=== PATIENT | female | born 1980 | race Caucasian/White ===

== ENCOUNTER 2016-11-11 18:02 | Emergency (ER) | payer OTHER ==
[2016-11-11] MEDS ORDERED: NS 1,000 ML IV ONE (18:40)
[2016-11-11 19:07] LABS: % IMMATURE GRANULYOCYTES 0.2 % (0.0-1.1); ABSOLUTE IMMATURE GRANULOCYTES 0.02 10^3/uL (0.00-0.10); ADD DIFF? NO; ADD MORPH? NO; ADD SCAN? NO; ATYPICAL LYMPHOCYTE FLAG 0 (0-99); FRAGMENT RBC FLAG 0 (0-99); HEMATOCRIT 43.5 % (38.0-47.0); HEMOGLOBIN 14.9 g/dL (12.6-16.3); LEFT SHIFT FLG 0 (0-99); LIPEMIA HEMOLYSIS FLAG 90 (0-99); MEAN CELL HEMOGLOBIN 30.8 pg (27.9-34.1); MEAN CELL HEMOGLOBIN CONCENTR. 34.3 g/dL (32.4-36.7); MEAN CELL VOLUME 90.1 fL (81.5-99.8); MEAN PLATELET VOLUME 9.5 fL (8.7-11.7); PLATELET CLUMPS FLAG 0 (0-99); PLATELET COUNT 369 10^3/uL (150-400); RED BLOOD CELL COUNT 4.83 10^6/uL (4.18-5.33); RED CELL DISTRIBUTION WIDTH 12.9 % (11.5-15.2)
[2016-11-11 19:19] LABS: ANION GAP 11 mEq/L (8-16); CALCIUM 10.3 mg/dL (8.5-10.4); CARBON DIOXIDE 26 mEq/l (22-31); CHLORIDE 102 mEq/L (97-110); CREATININE 0.9 mg/dL (0.6-1.0); GLOMERULAR FILTRATION RATE > 60; GLUCOSE 100 mg/dL (70-100); SODIUM 139 mEq/L (134-144)
--- NOTE | 2016-11-11 19:19 | EDPHY ---
H & P Time Seen by Provider: 11/11/16 18:30 HPI/ROS: CHIEF COMPLAINT: Vaginal bleeding HISTORY OF PRESENT ILLNESS: 36-year-old female presents to the emergency department by private vehicle complaining of lower abdominal pain and abnormal vaginal bleeding. Her last menstrual period was 2 weeks ago which was normal in onset. She states today she developed some lower abdominal cramping while working and then developed heavy vaginal bleeding including passing large clots at work around 2:00 p.m. today. She states that the bleeding has continued although significantly improved. She has some lower back discomfort as well. She had an outpatient ultrasound done 4 or 5 months ago and she does not recall the results. 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 She has had 1 episode of intermittent vaginal bleeding over last few months. She states it has never been this bad. She denies feeling lightheaded. She has no syncopal episode. No fevers or chills. No chest pain or difficulty breathing. No urinary symptoms. She denies and states that her had a vasectomy number of years ago. REVIEW OF SYSTEMS: Constitutional: No fever, no chills. Eyes: No double or blurry vision. ENT: No sore throat. Respiratory: No cough, no shortness of breath. Cardiac: No chest pain. Gastrointestinal: Abdominal pain as above. No vomiting or diarrhea Genitourinary: Vaginal bleeding as above. No dysuria. Musculoskeletal: No neck or back pain. Skin: No rashes. Neurological: No headache. Past Medical/Surgical History: Negative Social History: Smoking Status: Never smoked Physical Exam: General Appearance: Alert, no distress. Vital signs are stable. Patient appears in no apparent distress. Eyes: Pupils equal and round. Extraocular motions are all intact. ENT: Mouth: Mucous membranes moist. Respiratory: No wheezing, rhonchi, or rales, lungs are clear to auscultation. Cardiovascular: Regular rate and rhythm. Gastrointestinal: Abdomen is soft and nontender, no masses, no rebound or guarding, bowel sounds normal. No CVA tenderness bilaterally. Genitourinary: Deferred Neurological: Alert and oriented x 3, cranial nerves II through XII grossly intact Skin: Warm and dry, no rashes. Musculoskeletal: Nontender to palpate along the cervical, thoracic or lumbar spine. Neck is supple. Extremities: Full range of motion and no peripheral edema. Psychiatric: Patient is oriented X 3, there is no agitation. Constitutional: Initial Vital Signs Temperature (C) 37 C 11/11/16 18:11 Heart Rate 108 H 11/11/16 18:11 Respiratory Rate 16 11/11/16 18:11 Blood Pressure 117/83 H 11/11/16 18:11 O2 Sat (%) 98 11/11/16 18:11 O2 Delivery Mode Room Air Allergies/Adverse Reactions: No Known Allergies Allergy (Verified 11/11/16 18:15) Home Medications: Medication Instructions Recorded Citalopram 11/11/16 Medical Decision Making - Diagnostics Imaging: Pelvic ultrasound reveals thickened endometrial lining at 16 mm. Uterus appears normal. Ovaries are normal. This is reported to me by Dr. Cho. ED Course/Re-evaluation: 36-year-old female presents with vaginal bleeding and lower abdominal pain. Pelvic ultrasound reveals 16 mm thickened endometrial lining. Her laboratory studies were within normal limits. HCG was negative. She was O positive. Patient was unable to provide a urine specimen. Patient was given 30 mg of IV Toradol and was feeling better. I spoke with Dr. Brenda Tompkins who was on-call for OBGYN. She agreed with discharging the patient and she would see her in follow-up. The patient was comfortable with this plan. She was comfortable being discharged home. Differential Diagnosis: Including but not limited to dysfunctional uterine bleeding, uterine fibroid, ovarian cyst, ovarian torsion, ectopic , intrauterine - Data Points Laboratory Results: Laboratory Results 11/11/16 18:30 11/11/16 18:30 11/11/16 11/11/16 11/11/16 18:30 18:30 18:30 WBC 10.15 10^3/uL H 10^3/uL (3.80-9.50) RBC 4.83 10^6/uL 10^6/uL (4.18-5.33) Hgb 14.9 g/dL g/dL (12.6-16.3) Hct 43.5 % % (38.0-47.0) MCV 90.1 fL fL (81.5-99.8) MCH 30.8 pg pg (27.9-34.1) MCHC 34.3 g/dL g/dL (32.4-36.7) RDW 12.9 % % (11.5-15.2) Plt Count 369 10^3/uL 10^3/uL (150-400) MPV 9.5 fL fL (8.7-11.7) Neut % (Auto) 71.2 % % (39.3-74.2) Lymph % (Auto) 22.0 % % (15.0-45.0) [place] % (Auto) 5.0 % % (4.5-13.0) Eos % (Auto) 1.0 % % (0.6-7.6) Baso % (Auto) 0.6 % % (0.3-1.7) Nucleat RBC Rel Count 0.0 % % (0.0-0.2) Absolute Neuts (auto) 7.23 10^3/uL H 10^3/uL (1.70-6.50) Absolute Lymphs (auto) 2.23 10^3/uL 10^3/uL (1.00-3.00) Absolute Monos (auto) 0.51 10^3/uL 10^3/uL (0.30-0.80) Absolute Eos (auto) 0.10 10^3/uL 10^3/uL (0.03-0.40) Absolute Basos (auto) 0.06 10^3/uL 10^3/uL (0.02-0.10) Absolute Nucleated RBC 0.00 10^3/uL 10^3/uL (0-0.01) Immature Gran % 0.2 % % (0.0-1.1) Immature Gran # 0.02 10^3/uL 10^3/uL (0.00-0.10) Sodium 139 mEq/L mEq/L (134-144) Potassium 4.0 mEq/L mEq/L (3.5-5.2) Chloride 102 mEq/L mEq/L (97-110) Carbon Dioxide 26 mEq/l mEq/l (22-31) Anion Gap 11 mEq/L mEq/L (8-16) BUN 9 mg/dL mg/dL (7-23) Creatinine 0.9 mg/dL mg/dL (0.6-1.0) Estimated GFR > 60 Glucose 100 mg/dL mg/dL (70-100) Calcium 10.3 mg/dL mg/dL (8.5-10.4) Beta HCG, Qual NEGATIVE Patient ABO/Rh 11/11/16 18:20 WBC RBC Hgb Hct MCV MCH MCHC RDW Plt Count MPV Neut % (Auto) Lymph % (Auto) [place] % (Auto) Eos % (Auto) Baso % (Auto) Nucleat RBC Rel Count Absolute Neuts (auto) Absolute Lymphs (auto) Absolute Monos (auto) Absolute Eos (auto) Absolute Basos (auto) Absolute Nucleated RBC Immature Gran % Immature Gran # Sodium Potassium Chloride Carbon Dioxide Anion Gap BUN Creatinine Estimated GFR Glucose Calcium Beta HCG, Qual Patient ABO/Rh O POSITIVE Medications Given: Discontinued Medications Sodium Chloride (Ns) 1,000 mls @ 0 mls/hr IV ONCE ONE PRN Reason: Wide Open Stop: 11/11/16 18:41 Last Admin: 11/11/16 18:40 Dose: 1,000 mls Ketorolac Tromethamine (Toradol) 30 mg IVP EDNOW ONE Stop: 11/11/16 20:16 Last Admin: 11/11/16 20:23 Dose: 30 mg Departure - Departure Disposition: Home, Routine, Self-Care Clinical Impression: Dysfunctional uterine bleeding Condition: Good Instructions: Dysfunctional Uterine Bleeding (ED) Additional Instructions: Call to arrange follow-up appointment with OBGYN. Return if he developed recurring abnormal bleeding, if you saturate a pad within 1 hour, or if you feel worse in any way. Referrals: Brenda Tompkins DO [Doctor of Osteopathy] - 5-7 days, call for appt. (OBGYN on- call)
[2016-11-11 20:06] VITALS: RESP 15
[2016-11-11] MEDS ORDERED: KETOROLAC 30 MG/1 ML SDV IVP ONE (20:15)
[2016-11-11 20:57] VITALS: BP 108/76; PULSE 84; TEMP 98.8; O2SAT 97
== END 2016-11-11 20:56 | disposition home or self-care (01) ==
DX: N93.8 Other specified abnormal uterine and vaginal bleeding (principal)
CPT/HCPCS: 96374; J1885

== ENCOUNTER → 2017-04-13 | Outpatient (CLI) | payer OTHER | LOC: FIMAGING 08:46 | PROVIDERS: ATTEND Internal Medicine Endocrinology, Diabetes & Metabolism | DX: E04.1 Nontoxic single thyroid nodule (principal) ==

== ENCOUNTER 2017-07-13 05:05 | Observation (INO) | payer OTHER ==
--- NOTE | 2017-07-01 19:34 | GHP ---
[f rep st] HISTORY AND PHYSICAL DATE OF ADMISSION: 07/13/2017 ADMITTING DIAGNOSIS: Dysfunctional uterine bleeding. HISTORY OF PRESENT ILLNESS: Patient is a 36-year-old 4, para 3-0-1-3 with last menstrual period 06/18/2017, who presents to my office for a surgical consult secondary to abnormal uterine bleeding for the past year. Patient states cycles are every 28 days for 6 or 7 days. Usually the first 4 days are heavy with medium, large clots noted and painful cramps. She does get relief with Midol and Motrin. She then will have abnormal heavy bleeding for another 3 -5 days. Changes her pad and tampon every hour or so. May 07 was her last episode of bleeding. She soaked through her clothes. Then she had a normal cycle May 22, then the she had pelvic pain and spotting, mucus with small clots noted. Patient has had a complete workup with PCP. No anemia or thyroid dysfunction noted. She did have an ultrasound November 2016, showing retroverted, retroflexed uterus measuring 9 x 3 x 5 cm with no masses, no definitive fibroids, diffuse heterogeneous endometrium measuring 16 mm, questionable complex fluid and/or clot within the endocervical canal, and no adnexal masses seen. Mild prominent adnexal veins were noted. Patient was on OCPs in the past. Did not tolerate secondary to mood swings. She is not interested in ablation, and having recurrence of bleeding 3-5 years later. Patient desires definitive treatment at this time secondary to her irregular, heavy bleeding, which is starting to interfere with her activities of daily living. We discussed proceeding to the OR for a laparoscopic hysterectomy, and patient agrees with this plan. We discussed removing fallopian tubes without removal of ovaries. PAST OBSTETRICAL HISTORY: In 1999, she had a missed . In 2001, she had an uncomplicated vaginal delivery. In 2002, she had an uncomplicated vaginal delivery and in 2005, she had an uncomplicated vaginal delivery. GYNECOLOGIC HISTORY: Age of menarche was 13. Cycles every 28 days. Usually bleeds for 7 days. They are heavy with painful cramps. Patient denies a history of abnormal Pap smears and denies any exposure to sexually transmitted diseases. PAST MEDICAL HISTORY: Remarkable for depression, anxiety, questionable thyroid disease. PAST SURGICAL HISTORY: Unremarkable. CURRENT MEDICATIONS: None. ALLERGIES: No known drug allergies. SOCIAL HISTORY: Patient is . She lives with her and their 3 children. 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 Denies any tobacco use. Alcohol: She drinks socially 1-2 times a week, and denies any illicit drug use. FAMILY HISTORY: Dad and maternal grandfather with heart disease, and mental illness on both maternal and paternal sides. Mother and father are both living. LABORATORY DATA: Pending. STUDIES: On recent ultrasound: The uterus is noted to be retroverted, measuring 8 x 4 x 5 cm. Uterus slightly heterogeneous, bulbous appearance. No distinct fibroids visualized. Endo-canal appears hypervascular, slightly more echogenic area, probable vascular stalk, questionable polyp measuring 7 x 3 x 7 mm. Ovaries normal appearing. No free fluid noted. EXAMINATION: GENERAL: Patient well-nourished, well-developed female, alert and oriented x3, no apparent distress. CARDIOVASCULAR: Regular rate, rhythm: PULM: Lungs clear to auscultation bilaterally. ABDOMEN: Soft, nondistended, nontender. PELVIC: Bimanual exam: A retroverted uterus, nontender, mobile. No adnexal masses noted. EXTREMITIES: Normal to inspection without calf tenderness or edema. ASSESSMENT: Patient is a 36-year-old 4, para 3-0-1-3, who presents with dysfunctional uterine bleeding, desiring definitive treatment. 1. Discussed surgery, laparoscopic hysterectomy with bilateral salpingectomy, its limitations, nothing by mouth status, and postoperative recovery. 2. Surgical consents were obtained. We discussed risks, benefits, alternatives of procedure, including, but not limited to bleeding, infection, damage to surrounding organs. 3. Patient understands all risks, and wants to proceed with surgery at this time. 4. Antibiotics rehabilitation services coordinator to operating room. 5. Sequential compression devices for deep vein thrombosis prophylaxis. 6. Lab slip given. We will check CBC, TSH, an ionized calcium per primary care physician and preoperative testing. 7. With family history of cardiac disease and patient's history of questionable palpitations, we will obtain an electrocardiogram. /[id number]/MODL MTDD
[2017-07-13] MEDS ORDERED: ceFAZolin 2 GM/SWFI 2 GM/20 ML SYR IVP ONE (05:48)
[2017-07-13] MEDS ORDERED: LR 1,000 ML IV ONE (05:50)
[2017-07-13] MEDS ORDERED: LIDOCAINE 1% 2 ML INJ ID PRN (05:50)
--- NOTE | 2017-07-13 07:05 | PDHPUP ---
History & Physical Update H&P update statement: This history and physical update is based on an assessment of the patient which was completed after admission or registration (within 24 hours), but prior to the surgery/procedure. H&P update: H&P reviewed & patient examined, no change in patient's condition since H&P completed
--- NOTE | 2017-07-13 07:08 | PDANEPAE ---
ANE Past Medical History - Cardiovascular History Hx Hypertension: No Hx Arrhythmias: No Hx Chest Pain: No Hx Coronary Artery / Peripheral Vascular Disease: No Hx CHF / Valvular Disease: No Hx Palpitations: Yes Cardiovascular History Comment: long time hx of irregular heart beat/ palpitations "since childhood". 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 06/22 normal Ca+. - Renal History Hx Renal Disorders: No - Liver History Hx Hepatic Disorders: No - Neurological & Psychiatric Hx Hx Neurological and Psychiatric Disorders: Yes Neurological / Psychiatric History Comment: hx of anxiety-NO ciitalopram use past 6 mos. - Cancer History Hx Cancer: No - Congenital Disorder History Hx Congenital Disorders: No - GI History Hx Gastrointestinal Disorders: No - Other Health History Other Health History: heavy uterine bleeding between Menses. - Chronic Pain History Chronic Pain: No - Surgical History Prior Surgeries: none ANE Review of Systems Review of Systems: - Exercise capacity METS (RN): 4 METS ANE Patient History - Allergies Allergies/Adverse Reactions: No Known Allergies Allergy (Verified 06/28/17 11:01) - Home Medications Home Medications: NK [No Known Home Meds] 06/28/17 [Last Taken Unknown] - Smoking Hx Smoking Status: Never smoked - Alcohol Use Alcohol Use: None - Family Anes Hx Family Anes Hx: neg - N/A Family Hx Anesthesia Complications: none known ANE Labs/Vital Signs - Vital Signs Blood Pressure: 111/80 Heart Rate: 88 Respiratory Rate: 16 O2 Sat (%): 98 Height: 167.64 cm Weight: 65.317 kg ANE Physical Exam - Airway Neck exam: FROM Mallampati Score: Class 2 - Pulmonary Pulmonary: no respiratory distress, no rales or rhonchi, clear to auscultation - Cardiovascular Cardiovascular: regular rate and rhythym, no murmur, rub, or gallop - ASA Status ASA Status: I (healthy female with dysfunctional bleeding)
[2017-07-13] MEDS ORDERED: MIDAZOLAM 2 MG/2 ML VIAL IVP ONE (07:09)
[2017-07-13] MEDS ORDERED: PROPOFOL/EMULSION 500 MG/50 ML BOTTLE IV ONE ×2 (07:13→08:54)
[2017-07-13] MEDS ORDERED: fentaNYL 100 MCG/2 ML INJ ONE ×2 (07:13→08:52)
[2017-07-13] MEDS ORDERED: MIDAZOLAM 2 MG/2 ML VIAL ONE (07:13)
[2017-07-13] MEDS ORDERED: BUPIVACAINE 0.5% 30 ML SDV ONE (07:21)
[2017-07-13] MEDS ORDERED: LIDOCAINE 2% 5 ML SDV ONE (08:51)
[2017-07-13] MEDS ORDERED: ONDANSETRON 4 MG/2 ML VIAL IVP PRN ×2 (09:01→12:45)
[2017-07-13] MEDS ORDERED: NALOXONE HCL 0.4 MG/ML INJ IVP PRN (09:01)
[2017-07-13] MEDS ORDERED: SUGAMMADEX SODIUM 200 MG/2 ML VIAL IVP ONE (09:29)
[2017-07-13] MEDS ORDERED: ONDANSETRON 4 MG/2 ML VIAL ONE (09:29)
[2017-07-13] MEDS ORDERED: ROCURONIUM 50 MG/5 ML VIAL ONE (09:29)
[2017-07-13] MEDS ORDERED: RANITIDINE 50 MG/2 ML VIAL ONE (09:29)
[2017-07-13] MEDS ORDERED: LABETALOL HCL 5 MG/ML 20 ML MDV ONE (09:29)
[2017-07-13] MEDS ORDERED: DEXAMETHASONE 4 MG/ML VIAL ONE (09:29)
--- NOTE | 2017-07-13 09:47 | POSTOPPROG ---
Post Op Note Date of Operation: 07/13/17 Surgeon: Chasidy Samson Instructor [employer]: Brenda Tompkins Anesthesia: GET(General Endotracheal) Pre-op Diagnosis: DUB Post-op Diagnosis: DUB, LLQ adhesions Indication: 37 y/o with DUB x 1 year duration Procedure: TLH with BS; ARYA Findings: Enlarged, boggy uterus w/ no def fibroids; tubes and ovaries normal Inf/Abcess present in the surg proc area at time of surgery?: No EBL: 50-100 (50 cc) Total fluids administered: 2400 cc LR UO: 300 cc clear urine at the end Complications: None Specimen(s): Uterus and b/l tubes
[2017-07-13] MEDS ORDERED: MAGNESIUM HYDROXIDE 30 ML UDCUP PO PRN (09:50)
[2017-07-13] MEDS ORDERED: BISACODYL 10 MG SUPP PR PRN (09:50)
[2017-07-13] MEDS ORDERED: KETOROLAC 30 MG/1 ML SDV IVP ONE (09:50)
[2017-07-13] MEDS ORDERED: POLYETHYLENE GLYCOL 3350 17 GM PKT PO PRN (09:50)
[2017-07-13] MEDS ORDERED: LACTULOSE 20 GM/30 ML UDCUP PO PRN (09:50)
[2017-07-13] MEDS ORDERED: HYDROmorphONE/DILAUDID 1 MG/ML INJ ONE (09:52)
--- NOTE | 2017-07-13 09:52 | POSTANESTH ---
Post Anesthetic Evaluation Respiratory Status: Normal, Stable Level of Consciousness/Mental Status: Can Participate in Eval Pain Control: Adequate, Prn Tx Ordered Nausea/Vomiting Control: Adequate, Prn Tx Ordered Complications Possibly Related to Anesthesia: None Noted (no complications)
[2017-07-13] MEDS: HYDROmorphONE/DILAUDID 1 MG/ML INJ IVP PRN ×2 (09:53→10:46)
[2017-07-13] MEDS ORDERED: KETOROLAC 15 MG/1 ML SDV ONE ×2 (09:59→10:13)
[2017-07-13] MEDS ORDERED: LR 1,000 ML IV SCH (10:00)
[2017-07-13] MEDS ORDERED: KETOROLAC 30 MG/1 ML SDV ONE (10:13)
[2017-07-13] MEDS ORDERED: PROMETHAZINE HCL 25 MG/ML INJ ONE (10:38)
--- NOTE | 2017-07-13 11:08 | GOP ---
[f rep st] OPERATIVE REPORT DATE OF OPERATION: 07/13/2017 SURGEON: Chasidy Samson DO REEL FILM INSPECTOR: Brenda Tompkins DO ANESTHESIA: General endotracheal. ANESTHESIOLOGIST: Ilya Mock MD PREOPERATIVE DIAGNOSIS: Dysfunctional uterine bleeding. POSTOPERATIVE DIAGNOSIS: 1. Dysfunctional uterine bleeding. 2. Left lower quadrant adhesions. PROCEDURE PERFORMED: Total laparoscopic hysterectomy, bilateral salpingectomy and lysis of adhesions. FINDINGS: Grossly enlarged boggy uterus with no definitive fibroids seen. Grossly normal-appearing tubes and ovaries bilaterally. Grossly normal- appearing upper abdomen as well as appendix. There was noted to be left lower quadrant pelvic adhesions. All specimens to Pathology. SPECIMENS: Uterus and bilateral tubes. ESTIMATED BLOOD LOSS: 50 cc. INDICATIONS: The patient is a 37-year-old, 4, para 3-0-1-3, with a longstanding history of dysfunctional uterine bleeding. Cycles are usually about 28 days and she bleeds for 6-7days. The first 4 days are heavy with medium to large sized clots and painful cramping. and then she will have another episode of bleeding that lasts for a few days, heavy with medium-to- large size clots, moderate cramping. She will then have abnormal, heavy bleeding for another 3-5 days. In the month of May, she had her cycle 3 times. The patient states that it is hard to predict when she is going to have bleeding, and it is interfering with her life. She did not tolerate control pills in the past. She wants to have definitive treatment at this time and is requesting a hysterectomy. She was consented for the procedure. Discussed risks of the procedure, including but not limited to bleeding, infection, and damage to surrounding organs. She understands all these risks and wants to proceed with surgery. DESCRIPTION OF PROCEDURE: Patient was taken to the operating room where general anesthesia was obtained without difficulty. She was placed in dorsal lithotomy position and prepped and draped in the usual sterile fashion. A Maloney catheter was placed in her bladder. After a WHO time-out was performed, an open-sided speculum was placed in the vagina. A single-tooth tenaculum was used to grasp the anterior lip of the cervix. The cervix was medium size. Uterus sounded to 9-10 cm. The KADE uterine manipulator was then inserted through the internal os, and the balloon was inflated. It was seated at the top of the endometrium. The manipulator was then advanced around the cervix, and uterine manipulation was performed. Attention was then turned to the abdominal portion of procedure. After injection of 0.5% plain Marcaine, a 5 mm skin incision was made with a scalpel in infraumbilical skin fold. A Veress needle was then placed through that incision without difficulty while tenting the abdominal wall. There was good drop in pressure upon entry into the peritoneal cavity and pneumoperitoneum was created with carbon dioxide gas. Under direct visualization, an atraumatic 5 mm trocar was then placed through this infraumbilical port. Patient was then placed in Trendelenburg to allow for visualization of the pelvis. After injection of more 0.5% plain Marcaine, another 5 mm trocar was placed on the left side, and a 10 mm trocar was placed on the right side without difficulty and balloons were inflated. Pelvic findings are noted above. At this time, the left fallopian tube was grasped at the fimbriated end. LigaSure device was used to cauterize and dissect the tube from fimbria, all the way to the cornual region of the uterus. This was cauterized and cut, and tube was removed directly through the 10 mm port without difficulty. Exact same procedure was done on the right fallopian tube. Again, it was grasped at the fimbriated end, LigaSure device was used to cauterize and dissect the tube from the fimbria all the way to the cornual region of the uterus. This was cauterized and cut, and the right tube was removed directly through 10 mm port. We then turned attention to round ligaments. These were identified, cauterized multiple times, and transected with the LigaSure. The utero-ovarian ligaments were again cauterized multiple times using the LigaSure and transected. This was carried down to the cardinal ligament. Broad ligament was then entered and reflected in anterior-posterior reflections. Dissection was made over the anterior portion to allow for manipulation of bladder flap. Uterine vessels were then identified. They were cauterized multiple times with the LigaSure and then transected. Good hemostasis was noted. After manipulation of the KADE uterine manipulator, the KADE was identified through the vaginal wall, and the LigaSure hook device was used to perform the colpotomy. This was performed anterior to posteriorly. The colpotomy was then completed with hemostasis noted. The uterus was then removed through the vagina intact without difficulty. A sterile lap sponge and glove was then placed vaginally to help maintain pneumo. The vaginal cuff was then closed with a V-Loc 0 Vicryl suture from right to left. Hemostasis was noted. We then copiously irrigated the pelvis and hemostasis was noted. Both ureters were seen laparoscopically, and peristalsis was noted. We then closed our fascial incision using a button and 0 Vicryl suture. All instruments were then removed from the abdomen. The air was allowed to escape. We then turned our attention to the incisions. The two 5 mm and 10 mm incisions were closed with 3-0 Vicryl and then covered with Steri-Strips and Band-Aids. We then went back down below and removed the sterile lap sponge and glove. We looked at the vaginal cuff and it was hemostatic. The Maloney will remain in place. The patient tolerated the procedure well. No complications. Sponge, lap, needle, and instrument counts correct x2. Patient was then taken out of dorsal lithotomy position, awakened and taken to the recovery room in good condition. IV FLUIDS: 2400 cc LR. URINE OUTPUT: 300 cc of clear urine at the end the procedure. /[id number]/MODL MTDD
[2017-07-13] MEDS ORDERED: PROMETHAZINE HCL 25 MG/ML INJ IV ONE (11:15)
[2017-07-13] MEDS ORDERED: HYDROmorphONE/DILAUDID 1 MG/ML INJ IVP PRN (11:48)
[2017-07-13] MEDS: HYDROCODONE/APAP 5/325 TAB PO PRN ×2 (16:56→18:38)
[2017-07-13] MEDS: SENNOSIDES/DOCUSATE SODIUM TAB PO SCH (19:20)
[2017-07-13] MEDS: IBUPROFEN 600 MG TAB PO PRN (19:20)
[2017-07-14] MEDS: HYDROCODONE/APAP 5/325 TAB PO PRN ×3 (00:16→08:16)
[2017-07-14] MEDS: IBUPROFEN 600 MG TAB PO PRN ×2 (01:18→08:16)
[2017-07-14 04:24] VITALS: RESP 16
[2017-07-14] MEDS: SENNOSIDES/DOCUSATE SODIUM TAB PO SCH (08:16)
--- NOTE | 2017-07-14 08:18 | SOAPPROG ---
SOAP Progress Note Assessment/Plan: Assessment: s/p TLH, BS and ARYA secondary to DUB POD # 1 - pt is stable Plan: Continue routine post-op care Villalba just removed, pt needs to void Plan for d/c home after pt voids Instructions reviewed with pt Rx given for [place] and Motrin Pelvic rest RTC in 2 weeks for incision check 07/14/17 08:14 Subjective: Pt seen and examined. Doing well, but she is having some discomfort RLQ this am and feels bloated-she just finished eating breakfast. Pain 5/10. She has not had her morning po meds yet. Pt is OOB, deena regular diet, villalba removed-pt has not voided yet, passing flatus, no BM. Denies any f/c/n/v/CP or SOB. Minimal spotting noted. Objective: Vital Signs Temp Pulse Resp BP Pulse Ox 37.1 C 81 16 95/57 L 96 07/14/17 04:23 07/14/17 04:23 07/14/17 04:23 07/14/17 04:23 07/14/17 04:23 Laboratory Results 07/14/17 06:00 07/13/17 07/14/17 07/15/17 05:59 05:59 05:59 Intake Total 1615 Output Total 2350 Balance -735 Physical Exam - Physical Exam General Appearance: WD/WN, alert, no apparent distress Respiratory: lungs clear, normal breath sounds Cardiac/Chest: regular rate, rhythm Abdomen: normal bowel sounds, non-tender (some mild TTP RLQ), soft, distended ( mild), other (Incisions x 3 - C/D/I, with steri strips and Bandaids in place) Pelvic Exam: deferred Skin: normal color, warm/dry Extremities: non-tender, normal inspection Neuro/Psych: alert, normal mood/affect, oriented x 3 ICD10 Worksheet Patient Problems: Problems Problem Status Onset DUB (dysfunctional uterine bleeding) Acute S/P laparoscopic hysterectomy Acute - ICD10 Problem Qualifiers (1) DUB (dysfunctional uterine bleeding) (2) S/P laparoscopic hysterectomy
[2017-07-14 09:03] VITALS: BP 106/74; PULSE 76; TEMP 97.8; O2SAT 98
[2017-07-14] MEDS ORDERED: FLU VACC QS 2017-18 (3YR+)/PF 0.5 ML SYR (FLUARIX QUAD) IM ONE (10:27)
== END 2017-07-14 11:00 | disposition home or self-care (01) ==
LOC: FSGY 05:05 → F3E 09:50 → FOB 11:31
PROVIDERS: ADMIT Obstetrics & Gynecology; ATTEND Obstetrics & Gynecology
DX: N88.8 Other specified noninflammatory disorders of cervix uteri (principal); N93.9 Abnormal uterine and vaginal bleeding, unspecified
CPT/HCPCS: 58571; 90471; G0378; G0008; J0690; J1100; J1170; J1885; J2250; J2405; J2550; J2704; J2780; J3010; J3490